=== PATIENT | male | born 2000 | race Hispanic/Latino ===

== ENCOUNTER → 2024-05-01 | Day surgery (SDC) | payer BC ==
[~2024-05-01] MED LIST: FAMOTIDINE20 MG PO; FENTANYL CITRATE/PF 100MCG/2 ML INJ ONE; LIDOCAINE HCL 2% LOCAL INJ 5 ML SDV VIAL INJ ONE; MIDAZOLAM HCL 2 MG/2 ML VIAL ONE; PROPOFOL IV EMULSION 0 ML IV ONE; PROPOFOL IV EMULSION 10 MG/ML 20 ML VIAL ONE; VIT D PO
[2024-05-01] MEDS: LACTATED RINGER'S 1,000 ML ONE (11:38)
[2024-05-01 13:07] VITALS: TEMP 97.2
[2024-05-01 13:35] VITALS: BP 131/76; PULSE 77; RESP 16; O2SAT 96
== END | disposition home or self-care (01) ==
LOC: OR 10:14
PROVIDERS: ATTEND Internal Medicine Gastroenterology
DX: K21.9 Gastro-esophageal reflux disease without esophagitis (principal); K29.50 Unspecified chronic gastritis without bleeding; A04.8 Other specified bacterial intestinal infections; K44.9 Diaphragmatic hernia without obstruction or gangrene; R89.4 Abnormal immunological findings in specimens from other organs, systems and tissues; J45.909 Unspecified asthma, uncomplicated; K52.9 Noninfective gastroenteritis and colitis, unspecified; K64.8 Other hemorrhoids; Z98.890 Other specified postprocedural states; E66.01 Morbid (severe) obesity due to excess calories; F41.9 Anxiety disorder, unspecified; Z79.1 Long term (current) use of non-steroidal anti-inflammatories (NSAID); Z68.41 Body mass index [BMI] 40.0-44.9, adult; Z83.79 Family history of other diseases of the digestive system
CPT/HCPCS: 43239; J2003; J2250; J2704; J3010; J7121